=== PATIENT | female | born 1985 | race Caucasian/White ===

== ENCOUNTER → 2017-08-28 | Outpatient (REF) | payer OTHER ==
[2017-08-28 13:55] LABS: CONTROL LINE HCG INT CTR LINE PRESENT; HCG, SERUM QUALITATIVE NEGATIVE (NEGATIVE)
[2017-08-28 15:13] LABS: HCG, SERUM QUANTITATIVE < 1.0 MIU/ML
== END ==
LOC: M LAB REF 13:09
DX: Z32.02 Encounter for pregnancy test, result negative (principal)

== ENCOUNTER → 2018-09-16 | Outpatient (REF) | payer OTHER ==
[~2018-09-16] MED LIST: IBUP80TA PO; MAPA500T2 PO; PRENATAL VITAMIN PO; TUMS500C PO
[2018-09-16 19:22] LABS: HEMATOCRIT 39.1 % (36.0-47.0); HEMOGLOBIN 12.7 g/dl (12.0-15.5); MEAN CORPUSCULAR HEMOGLOBIN 31.1 pg (27.0-33.0); MEAN CORPUSCULAR HGB CONC 32.5 g/dl (32.0-36.5); MEAN CORPUSCULAR VOLUME 95.6 fl (80.0-96.0); PLATELET COUNT, AUTOMATED 311 10^3/uL (150-450); RED BLOOD COUNT 4.09 10^6/uL (4.00-5.40); WHITE BLOOD COUNT 7.5 10^3/uL (4.0-10.0)
[2018-09-17 11:59] LABS: HCG, SERUM QUANTITATIVE 37337 MIU/ML; HEPATITIS B SURFACE ANTIGEN NEGATIVE (NEGATIVE); HIV 1&2 SCREEN CENTAUR NEGATIVE (NEGATIVE); RUBELLA IgG QUALITATIVE IMMUNE (IMMUNE)
== END ==
LOC: M LAB REF 16:32
PROVIDERS: ATTEND Obstetrics & Gynecology
DX: O36.80X0 Pregnancy with inconclusive fetal viability, not applicable or unspecified (principal); Z32.01 Encounter for pregnancy test, result positive; Z3A.00 Weeks of gestation of pregnancy not specified

== ENCOUNTER → 2019-02-11 | Outpatient (CLI) | payer OTHER, BC ==
[~2019-02-11] MED LIST changes: +FAMO40TA3 PO; +IBUP-1022 PO
[2019-02-11 17:21] LABS: HEMATOCRIT 34.5 % (36.0-47.0); HEMOGLOBIN 11.4 g/dl (12.0-15.5); MEAN CORPUSCULAR HEMOGLOBIN 32.7 pg (27.0-33.0); MEAN CORPUSCULAR VOLUME 98.9 fl (80.0-96.0); PLATELET COUNT, AUTOMATED 284 10^3/uL (150-450); RED BLOOD COUNT 3.49 10^6/uL (4.00-5.40)
== END ==
LOC: M LAB 14:35
PROVIDERS: ATTEND Obstetrics & Gynecology
DX: Z34.82 Encounter for supervision of other normal pregnancy, second trimester (principal)

== ENCOUNTER → 2019-02-24 | Outpatient (CLI) | payer OTHER, BC ==
[~2019-02-24] MED LIST changes: -FAMO40TA3 PO; -IBUP-1022 PO
== END ==
LOC: M LAB 08:01
PROVIDERS: ATTEND Obstetrics & Gynecology
DX: R73.02 Impaired glucose tolerance (oral) (principal)

== ENCOUNTER → 2019-04-05 | Outpatient (REF) | payer OTHER, BC | LOC: M LAB REF 16:25 | PROVIDERS: ATTEND Obstetrics & Gynecology | DX: Z36.85 Encounter for antenatal screening for Streptococcus B (principal) ==

== ENCOUNTER 2019-05-03 09:18 | Inpatient (IN) | payer OTHER, BC ==
[2019-05-03] VITALS (25 sets, daily range): BP systolic 103–133; BP diastolic 55–98
[~2019-05-03] VITALS: Ht 162.6 cm; Wt 78.2 kg
[2019-05-03] MEDS ORDERED: LACTATED RINGER'S 1000 ML IV STA (09:32)
[2019-05-03] MEDS: LR 1,000 ML IV SCH ×2 (10:18→12:47)
[2019-05-03 10:26] LABS: HEMATOCRIT 35.8 % (36.0-47.0); HEMOGLOBIN 12.3 g/dl (12.0-15.5); MEAN CORPUSCULAR HEMOGLOBIN 32.6 pg (27.0-33.0); MEAN CORPUSCULAR HGB CONC 34.4 g/dl (32.0-36.5); PLATELET COUNT, AUTOMATED 281 10^3/uL (150-450); RED BLOOD COUNT 3.77 10^6/uL (4.00-5.40)
[2019-05-03] MEDS ORDERED: AMPICILLIN SOD 2 GM in D5W MINI-BAG PLUS 100 ML IV ONE (13:00)
[2019-05-03] MEDS ORDERED: AMPICILLIN SOD 2 GM in D5W 50 ML IV ONE (13:00)
[2019-05-03] MEDS ORDERED: OXYTOCIN 30 UNITS IN 0.9% NaCl 500ML IV BAG (J2590) As Ordered ONE (13:17)
[2019-05-03] MEDS ORDERED: OXYTOCIN DRIP 30 UNITS in IV 1 EA IV SCH ×2 (14:00→21:53)
[2019-05-03] MEDS ORDERED: AMPICILLIN SOD 1 GM in D5W 50 ML IV SCH (17:00)
[2019-05-03] MEDS ORDERED: FENTANYL 2MCG/ML ROPIVACAINE 0.2% IN 0.9% NACL 100ML IVBAG As Ordered ONE (19:06)
[2019-05-03] MEDS ORDERED: ePHEDrine SULFATE 25 MG/5 ML(5MG/ML) SYRINGE IV PRN (21:00)
[2019-05-03] MEDS ORDERED: diphenhydrAMINE INJ 50MG/ML VIAL (J1200) IV PRN (21:00)
[2019-05-03] MEDS ORDERED: EPIDURAL COMMENT XX SCH (21:00)
[2019-05-03] MEDS ORDERED: FENTANYL/ROPIVACAINE/NACL BAG 100 ML EPIDURAL SCH (21:00)
[2019-05-03] MEDS ORDERED: ONDANSETRON 4MG/2ML VIAL (J2405) IV PRN (21:00)
[2019-05-03] MEDS ORDERED: NALOXONE INJ 0.4 MG/1 ML VIAL (J2310) IV PRN (21:00)
[2019-05-03] MEDS ORDERED: REFRIGERATOR IV KEYS XX PRN (21:00)
[2019-05-03] MEDS ORDERED: EPIDURAL/PCA KEYS XX PRN (21:00)
[2019-05-03 21:46] LABS: CORD GAS ABE V -4.9; CORD GAS HCO3 V 19.5 MEQ/L; CORD GAS O2 SAT V 83.1 %; CORD GAS PCO2 V 35.4 mmHg; CORD GAS PH V 7.36 UNITS; CORD GAS PO2 V 38.6 mmHg; CORD GAS SBC V 20.1 MEQ/L; CORD GAS TCO2 V 20.6 MEQ/L
[2019-05-03 21:49] LABS: CORD GAS ABE A -7.6; CORD GAS HCO3 A 20.1 MEQ/L; CORD GAS O2 SAT A 49.5 %; CORD GAS PCO2 A 48.7 mmHg; CORD GAS PH A 7.234 UNITS; CORD GAS PO2 A 23.3 mmHg; CORD GAS SBC A 17.4 MEQ/L; CORD GAS TCO2 A 21.6 MEQ/L
[2019-05-03] MEDS ORDERED: RHOGAM 300 MCG (1500 IU) INJ (J2790) IM SCH (22:00)
[2019-05-03] MEDS ORDERED: METHYLERGONOVINE MALEATE 0.2 MG TAB PO PRN (22:00)
[2019-05-03] MEDS ORDERED: ACETAMINOPHEN TAB 650MG DOSE (2X325MG) PO PRN (22:00)
[2019-05-03] MEDS ORDERED: DOCUSATE SODIUM 100 MG CAP PO PRN (22:00)
[2019-05-03] MEDS ORDERED: MEASLES,MUMPS,RUBELLA VACCINE INJ (MMR-II) (90707) SC SCH (22:00)
[2019-05-03] MEDS ORDERED: IBUPROFEN 600 MG TAB PO PRN (22:00)
[2019-05-03] MEDS ORDERED: DIBUCAINE 1% OINTMENT 30GM TOP PRN (22:00)
--- NOTE | 2019-05-03 22:58 | HPE ---
DATE OF ADMISSION: 05/03/2019 Jocelyne is a 33-year-old female, 2, para 1-0-0-1, with an estimated date of confinement (EDC) of 05/07/2019, estimated gestational age 39-4/7 weeks gestation, who is being admitted for an induction. After counseling, decision was being admitted for elective induction. Upon admission no bleeding, no leakage of fluid. Good movement. Her records reviewed, which were essentially unremarkable. Blood type is A positive, rubella immune, hepatitis negative, HIV negative, gonorrhea and chlamydia negative, 1-hour sugar testing was within normal limits. Her group B Streptococcus (GBS) is positive. PAST MEDICAL HISTORY: Denies. PAST SURGICAL HISTORY: Denies. SOCIAL HISTORY: She is . Denies any alcohol, drug or cigarette smoking. REVIEW OF SYSTEMS: Unremarkable. MEDICATIONS vitamin. ALLERGIES: No known drug allergies. PHYSICAL EXAMINATION: Normal-appearing female in no acute distress. ABDOMEN: Soft, nontender, nondistended. EXTREMITIES: No clubbing, cyanosis or edema. VAGINAL EXAM: 1-2 cm dilated, 60-70% effaced, fetus at -3 station, vertex position. Tracing reviewed. Category one tracing. ASSESSMENT: 1. Intrauterine at 39-4/7 weeks gestation and being admitted for elective induction. 2. GBS positive. PLAN: Admit to labor and delivery. Routine labs sent. Ampicillin started for GBS prophylaxis. Pain management discussed. The patient opted for an epidural. Induction process also discussed. Patient given options and Pitocin and Cytotec. The decision was made to proceed with the Pitocin induction, which would be followed by artificial rupture of membrane.
--- NOTE | 2019-05-03 23:01 | DN ---
DATE: 05/03/2019 Snow is a 33-year-old female, 2, para 1-0-0-1, who was admitted at 39-4/7 weeks gestation for an induction. She underwent Pitocin followed by artificial rupture of membranes. She then progressed to fully dilated with a deep variable deceleration down to 80 beats per minute. She then pushed and delivered a live male infant in right occiput anterior position with a nuchal cord times one, scores 9 and 9. Placenta delivered spontaneously intact. Three-vessel cord. Perineum, vagina and cervix inspected. A first degree midline perineal laceration was noted, which was repaired using 2-0 Chromic. Estimated blood loss 250 mL. Both mother and baby in stable condition.
[2019-05-04 00:07] VITALS: BP 108/53
[2019-05-04] MEDS: IBUPROFEN 800 MG TAB PO PRN ×3 (00:45→21:46)
[2019-05-04] MEDS: ACETAMINOPHEN 500 MG TAB PO PRN ×2 (05:24→16:30)
[2019-05-04 06:18] VITALS: BP 112/55
[2019-05-04] MEDS: PRENATAL VITAMINS CHEWABLE TABLET PO SCH (08:39)
[2019-05-04 18:10] VITALS: BP 107/54
[2019-05-05 06:00] VITALS: BP 110/60
[2019-05-05] MEDS: PRENATAL VITAMINS CHEWABLE TABLET PO SCH (07:20)
== END 2019-05-05 10:30 | disposition home or self-care (01) | DRG 807 ==
LOC: M LDI 09:18 → M OBS 05-04 00:01
PROVIDERS: ADMIT Obstetrics & Gynecology; ATTEND Obstetrics & Gynecology
PROC: 10E0XZZ Delivery of Products of Conception, External Approach (ICD-10-PCS; principal; 2019-05-03)
PROC: 0HQ9XZZ Repair Perineum Skin, External Approach (ICD-10-PCS; 2019-05-03)
PROC: 3E033VJ Introduction of Other Hormone into Peripheral Vein, Percutaneous Approach (ICD-10-PCS; 2019-05-03)
PROC: 10907ZC Drainage of Amniotic Fluid, Therapeutic from Products of Conception, Via Natural or Artificial Opening (ICD-10-PCS; 2019-05-03)
DX: O99.824 Streptococcus B carrier state complicating childbirth (principal); Z37.0 Single live birth; Z3A.39 39 weeks gestation of pregnancy; O70.0 First degree perineal laceration during delivery; O69.81X0 Labor and delivery complicated by cord around neck, without compression, not applicable or unspecified

== ENCOUNTER → 2019-07-15 | Outpatient (REF) | payer OTHER, BC ==
[~2019-07-15] MED LIST changes: +FAMO40TA3 PO; +IBUP-1022 PO
[2019-07-15 19:16] LABS: BASO % 0.5 % (0.0-1.0); EOS # 0.3 10^3/uL (0.0-0.5); EOS % 3.2 % (0.0-3.0); HEMATOCRIT 40.4 % (36.0-47.0); HEMOGLOBIN 12.7 g/dl (12.0-15.5); LYMPH % 25.8 % (24.0-44.0); MEAN CORPUSCULAR HEMOGLOBIN 30.2 pg (27.0-33.0); MEAN CORPUSCULAR HGB CONC 31.4 g/dl (32.0-36.5); MONO # 0.6 10^3/uL (0.0-0.8); MONO % 7.3 % (0.0-5.0); NEUTROPHILS # 4.9 10^3/uL (1.5-8.5); NEUTROPHILS % 62.9 % (36.0-66.0); PLATELET COUNT, AUTOMATED 389 10^3/uL (150-450); RED BLOOD COUNT 4.21 10^6/uL (4.00-5.40); WHITE BLOOD COUNT 7.8 10^3/uL (4.0-10.0)
[2019-07-15 19:27] LABS: ALBUMIN 4.2 GM/DL (3.2-5.2); ALT/SGPT 531 U/L (12-78); AMYLASE 72 U/L (25-115); BILIRUBIN,TOTAL 0.6 MG/DL (0.2-1.0); BLOOD UREA NITROGEN 15 MG/DL (7-18); CALCIUM LEVEL 9.5 MG/DL (8.5-10.1); CARBON DIOXIDE LEVEL 27 MEQ/L (21-32); CHLORIDE LEVEL 104 MEQ/L (98-107); CREATININE FOR GFR 0.68 MG/DL (0.55-1.30); GLOMERULAR FILTRATION RATE > 60.0 (>60); GLUCOSE, FASTING 78 MG/DL (70-100); LIPASE 139 U/L (73-393); POTASSIUM SERUM 4.3 MEQ/L (3.5-5.1); SODIUM LEVEL 140 MEQ/L (136-145); TOTAL PROTEIN 7.6 GM/DL (6.4-8.2)
== END ==
LOC: M LAB REF 19:09
PROVIDERS: ATTEND Nurse Practitioner Family
DX: R10.816 Epigastric abdominal tenderness (principal)

== ENCOUNTER 2019-07-18 00:31 | Day surgery (SDC) | payer OTHER, BC ==
[~2019-07-18] VITALS: Ht 162.6 cm; Wt 76.2 kg
[~2019-07-18 00:31] MED LIST changes: -FAMO40TA3 PO; -IBUP-1022 PO
[2019-07-18] MEDS ORDERED: IBUP-1022 PO (00:36)
[2019-07-18] MEDS ORDERED: MORPHINE 4 MG/ML 1ML VIAL/SYRINGE (J2270) IV ONE (01:15)
[2019-07-18] MEDS ORDERED: METOCLOPRAMIDE INJ 10MG/2ML VIAL (J2765) IV ONE (01:15)
[2019-07-18] MEDS ORDERED: NS 1,000 ML IV ONE (01:15)
[2019-07-18 01:20] LABS: BASO # 0.1 10^3/uL (0.0-0.2); BASO % 0.7 % (0.0-1.0); EOS # 0.1 10^3/uL (0.0-0.5); EOS % 1.1 % (0.0-3.0); HEMATOCRIT 37.1 % (36.0-47.0); HEMOGLOBIN 12.2 g/dl (12.0-15.5); LYMPH # 1.2 10^3/uL (1.5-5.0); LYMPH % 17.2 % (24.0-44.0); MEAN CORPUSCULAR HEMOGLOBIN 30.6 pg (27.0-33.0); MEAN CORPUSCULAR HGB CONC 32.9 g/dl (32.0-36.5); MONO # 0.4 10^3/uL (0.0-0.8); MONO % 5.5 % (0.0-5.0); NEUTROPHILS # 5.4 10^3/uL (1.5-8.5); NEUTROPHILS % 75.4 % (36.0-66.0); PLATELET COUNT, AUTOMATED 355 10^3/uL (150-450); RED BLOOD COUNT 3.99 10^6/uL (4.00-5.40); WHITE BLOOD COUNT 7.1 10^3/uL (4.0-10.0)
[2019-07-18 01:35] LABS: HCG, SERUM QUALITATIVE NEGATIVE (NEGATIVE)
[2019-07-18 01:51] LABS: ALT/SGPT 1074 U/L (12-78); BILIRUBIN,DIRECT 0.4 MG/DL (0.0-0.2); BLOOD UREA NITROGEN 11 MG/DL (7-18); CALCIUM LEVEL 8.9 MG/DL (8.5-10.1); CARBON DIOXIDE LEVEL 27 MEQ/L (21-32); CHLORIDE LEVEL 104 MEQ/L (98-107); CREATININE FOR GFR 0.73 MG/DL (0.55-1.30); GLOMERULAR FILTRATION RATE > 60.0 (>60); GLUCOSE, FASTING 107 MG/DL (70-100); LIPASE 88 U/L (73-393); POTASSIUM SERUM 3.4 MEQ/L (3.5-5.1); SODIUM LEVEL 139 MEQ/L (136-145); TOTAL PROTEIN 7.5 GM/DL (6.4-8.2)
--- NOTE | 2019-07-18 02:40 | REPVR ---
PROCEDURE INFORMATION: Exam: US Abdomen Limited, Right Upper Quadrant Exam date and time: 07/18/19 (1:36am) Age: 33 years old Clinical indication: Acute abdominal pain. Biliary evaluation. TECHNIQUE: Imaging protocol: Real-time ultrasound of the abdomen with image documentation. Examination was focused on the right upper quadrant. COMPARISON: No relevant prior studies available FINDINGS: The liver is visually normal in size and texture. Distended gallbladder (measuring 11 x 4 cm in 2 dimensions), containing multiple echogenic stones. The gallbladder wall is thin. No pericholecystic fluid is appreciated. The sonographic Martinez's sign is reported to be (-). The CBD is mildly dilated (6.4 mm diameter). The pancreas appears unremarkable. The right kidney measures 11.2 cm in length, with no hydronephrosis appreciated. No ascites is seen. IMPRESSION: No evidence of acute cholecystitis. Thin gallbladder wall. Distended gallbladder, containing multiple stones. Mildly dilated CBD (6.4 mm diameter). Electronically signed by: Amber Brady On 07/18/2019 02:39:29 AM
[2019-07-18] MEDS ORDERED: KETOROLAC 30 MG/ML VIAL (J1885) IV PRN (04:00)
[2019-07-18] MEDS ORDERED: MAALOX 30 ML SUSP *UDC PO PRN (04:00)
[2019-07-18] MEDS ORDERED: ACETAMINOPHEN TAB 650MG DOSE (2X325MG) PO PRN (04:00)
[2019-07-18] MEDS ORDERED: ONDANSETRON 4MG/2ML VIAL (J2405) IV PRN (04:00)
[2019-07-18] MEDS ORDERED: NS 1,000 ML IV SCH (04:00)
[2019-07-18] MEDS ORDERED: MOM 30ML SUSPENSION UDC PO PRN (04:00)
[2019-07-18] MEDS ORDERED: FAMO40TA3 PO (04:05)
[2019-07-18 05:00] VITALS: BP 119/74
[2019-07-18] MEDS ORDERED: KCL 10MEQ IN D5/0.45NS 1000ML 1,000 ML IV SCH (05:00)
--- NOTE | 2019-07-18 05:14 | HPEPDOC ---
[facility] Medical History & Physical Date of Admission Jul 18, 2019 Date of Service: Jul 18, 2019 History and Physical CHIEF COMPLAINT: Abdominal pain, nausea and vomiting HISTORY OF PRESENT ILLNESS: Patient is a 33-year-old with no significant PMH who presents with intermittent epigastric abdominal pain which radiates around the left ribs to the back, which has been ongoing for 10 days and associated with nausea and vomiting. Patient had 8 weeks ago. She denies any fevers or chills, chest pain, shortness of breath, issues with voiding or stooling. She has been taking ibuprofen with some relief. She subsequently went to urgent care and had an ultrasound abdomen performed today, she was instructed previously to go to the ED if symptoms worsen. In the ED, vital signs stable, labs include WBC of 7.1, H&H of 12.2 and 37.1 respectively, platelet count 355, potassium 3.4, creatinine 0.73, fasting glucose 107, total bilirubin 1, direct bilirubin 0.4, AST 588, ALT 1074, alkaline phosphatase 198, albumin 4, lipase 88 beta hCG negative. Abdominal ultrasound reveals a distended gallbladder measuring 11 x 4 x 2 with multiple echogenic stones, thin gallbladder wall, dilated common bile duct at 6.4mm. She was also given morphine and Reglan, which alleviated her pain and nausea. ROS: 10 point review systems negative except per above. PMH: See above. PSH: None Family history: Reviewed and noncontributory Social history: No tobacco, or illicits, occasional alcohol, currently breast- feeding Medications: Reviewed Allergies: NKDA PHYSICAL EXAMINATION: VITAL SIGNS: Please see below. GENERAL: pleasant female in No distress HEENT: Normocephalic, atraumatic, dry mucous membranes NECK: Supple CARDIOVASCULAR EXAMINATION: S1, S2 RESPIRATORY EXAMINATION: CTAB ABDOMINAL EXAMINATION: Soft, epigastric tenderness, nondistended, positive bowel sounds, juliet gonzalez's and Mcburney's EXTREMITIES: no edema SKIN: No rash NEUROLOGICAL EXAMINATION: Awake PSYCHIATRIC EXAMINATION: Calm and cooperative, appropriate affect #Dilated common bile duct likely has choledocholithiasis, without cholecystitis. Spoke with ED, who will be contacting GI for ERCP. Nothing by mouth, IV fluids. Pain control with IV ketorolac and Zofran for nausea. Avoid opioids due to possible constriction of sphincter of oddi. Reglan can be found in the breast milk, will not continue at this time for nausea. GI consult. Pt is surgically cleared for ERCP, Revised cardiac risk index is Class 1 risk. #Hepatitis secondary to above, patients head be, hep C, HIV evaluation during were all negative, monitor CMP #.Hypokalemia, replace with IV fluids, evaluate magnesium level and replace accordingly #Elevated alkaline phosphatase, could be influenced by recent , H&H stable #Breast-feeding: will be cautious regarding medication administration might influence breast-feeding DVT prophylaxis: SCDs, frequent ambulation, hold heparin at this time due to possible ERCP in the a.m. Full code Vital Signs Vital Signs Date Time Temp Pulse Resp B/P (MAP) Pulse Ox O2 Delivery O2 Flow Rate FiO2 07/18/19 01:35 18 07/18/19 00:58 07/18/19 00:31 97.4 67 99 Room Air Laboratory Data Labs 24H Laboratory Tests 2 07/18/19 01:10: Immature Granulocyte % (Auto) 0.1, Neutrophils (%) (Auto) 75.4H, Lymphocytes (%) (Auto) 17.2L, Monocytes (%) (Auto) 5.5H, Eosinophils (%) (Auto) 1.1, Basophils (%) (Auto) 0.7, Neutrophils # (Auto) 5.4, Lymphocytes # (Auto) 1.2L, Monocytes # (Auto) 0.4, Eosinophils # (Auto) 0.1, Basophils # (Auto) 0.1, Nucleated Red Blood Cells % (auto) 0.0, Anion Gap 8, Glomerular Filtration Rate > 60.0, Calcium Level 8.9, Total Bilirubin 1.0#, Direct Bilirubin 0.4H, Aspartate Amino Transf (AST/SGOT) 588H, Alanine Aminotransferase (ALT/SGPT) 1074H, Alkaline Phosphatase 198H, Total Protein 7.5, Albumin 4.0, Albumin/Globulin Ratio 1.14, Lipase 88, Human Chorionic Gonadotropin, Qual NEGATIVE CBC/BMP Laboratory Tests 07/18/19 01:10 Home Medications Scheduled Famotidine (Famotidine) 40 Mg Tablet, 40 MG PO DAILY NEW MEDICATION HAS NOT STARTED Scheduled PRN Ibuprofen (Ibuprofen) 600 Mg Tablet, 600 MG PO TID PRN for PAIN Allergies Coded Allergies: apple (Verified Allergy, Intermediate, SWOLLEN LIPS/TONGUE, 05/04/19) A-FIB/CHADSVASC A-FIB History Current/History of A-Fib/PAF?: No ACACIA MENCHACA MD Jul 18, 2019 03:50
[2019-07-18] MEDS: HEPARIN SOD (PORCINE) 5000 UNITS/ML VIAL SC SCH ×2 (05:20→20:12)
[2019-07-18 06:11] LABS: MAGNESIUM LEVEL 2.1 MG/DL (1.8-2.4)
[2019-07-18] MEDS ORDERED: MORPHINE 2 MG/ML 1ML VIAL (J2270) IV PRN (07:45)
[2019-07-18] MEDS ORDERED: NALOXONE INJ 0.4 MG/1 ML VIAL (J2310) IV PRN (07:45)
[2019-07-18] MEDS: KCL 10MEQ/100ML SWI (KRUN) 10 MEQ in IV 1 EA IV SCH ×2 (08:32→09:58)
[2019-07-18] MEDS: PANTOPRAZOLE 40MG INJ (PROTONIX) (C9113) IV SCH (08:33)
[2019-07-18] MEDS ORDERED: DOCUSATE SODIUM 100 MG CAP PO SCH (09:00)
[2019-07-18 09:18] LABS: BLOOD UREA NITROGEN 8 MG/DL (7-18); CARBON DIOXIDE LEVEL 24 MEQ/L (21-32); CHLORIDE LEVEL 109 MEQ/L (98-107); CREATININE FOR GFR 0.51 MG/DL (0.55-1.30); GLOMERULAR FILTRATION RATE > 60.0 (>60); GLUCOSE, FASTING 85 MG/DL (70-100); MAGNESIUM LEVEL 2.2 MG/DL (1.8-2.4); POTASSIUM SERUM 3.6 MEQ/L (3.5-5.1); SODIUM LEVEL 142 MEQ/L (136-145)
[2019-07-18 14:00] VITALS: BP 106/71
--- NOTE | 2019-07-18 15:10 | REP ---
MRI ABDOMEN WITHOUT CONTRAST: MRCP. HISTORY: Abnormal liver functions. COMPARISON SONOGRAPHY: July 18, 2019 TECHNIQUE: Axial and coronal T2-weighted scans are obtained. MRCP acquisition is acquired, and maximal intensity projection images are generated and viewed rotationally. MRCP FINDINGS: There are multiple tiny rounded filling defects in the dependent portion of the gallbladder consistent with small gallstones. The intrahepatic bile ducts are not dilated. Common bile duct is not dilated. It measures 5 mm in greatest diameter. There is no MRCP evidence of choledocholithiasis. Pancreatic duct is normal in caliber. No incidental solid organ abnormality is appreciated. IMPRESSION: Cholelithiasis. Otherwise normal MRCP. No evidence of choledocholithiasis seen. Electronically Signed by Fortino Moore MD 07/18/2019 06:56 P
--- NOTE | 2019-07-18 15:39 | IPNPDOC ---
Date Seen The patient was seen on 07/18/19. Progress Note SUBJECTIVE: Snow was seen and examined this morning while lying upright in bed. She reports no adverse events overnight. She's not currently in any pain and denies any pain overnight. She remains NPO and underwent an abdominal MRI this morning ordered by gastroenterology to help better visualize biliary tree anatomy. She denies feeling nauseated or vomiting, and has yet to have a bowel movement since she was admitted. She denies fever, chills, night sweats, chest pain, chest pressure, pal pitations, dyspnea, dysuria, hematuria or pruritus at this time. OBJECTIVE PHYSICAL EXAMINATION: VITAL SIGNS: Please see below. GENERAL: Pleasant female who appears stated age. Well-nourished, well- hydrated. Does not appear to be in acute distress of any kind. Awake, alert and oriented 3. HEENT: Atraumatic, normocephalic. Anicteric and noninjected sclera. No pharyngeal erythema or exudate. Trachea is midline. CARDIOVASCULAR: Regular rate, regular rhythm. Normal S1, S2. No murmurs, rubs or clicks appreciated. RESPIRATORY: Clear to auscultation bilaterally, anteriorly and posteriorly. Symmetric chest expansion. No accessory muscle use on respiration. No wheezes, crackles or rhonchi appreciated. ABDOMINAL: Soft, nontender and nondistended. Normoactive bowel sounds present. No guarding or rigidity. EXTREMITIES: No lower extremity edema, clubbing or cyanosis. 2+ radial and posterior tibial pulses bilaterally. NEUROLOGICAL: Awake, alert and oriented 3. Responds appropriately to questions and commands. No focal deficits are appreciated. PSYCHOLOGICAL: Affect and mood appear appropriate LABORATORY DATA, IMAGING STUDIES, MICROBIOLOGY: Please see below. Abdominal MRI (07/18/19): Showed cholelithiasis with no evidence of choledocholithiasis per gastroenterology. DVT prophylaxis: Knee-high sequentials ordered. ASSESSMENT AND PLAN: This is a 33-year-old female who is 8 weeks s/p with no pertinent past medical history who presented to the emergency department overnight with the chief complaint of intermittent epigastric pain radiating to the back for 10 days and accompanying nausea and vomiting. Right upper quadrant limited abdominal ultrasound in the emergency department showed no evidence of acute cholecystitis with cholelithiasis and dilated common bile duct. GI was consulted by the ED physician and MRI of the abdomen was scheduled for this morning with possible ERCP to follow with choledocholithiasis was present. Abdominal MRI this morning showed cholelithiasis with no evidence of choledocholithiasis. ERCP was subsequently canceled as result. Hospitalist team contacted general surgery, who advised advancing patient's diet from NPO to clear liquids and rechecking morning transaminases. Discharge to follow with scheduled general surgery follow-up for elective cholecystectomy. #Cholelithiasis -Abdominal MRI this morning showed gallstones with no evidence of choledocholithiasis. ERCP was subsequently canceled. -Diet advanced to clear liquids -Spoke with general surgery regarding patient. If patient tolerates continued advancement in diet and remains asymptomatic, plan is for discharge and with outpatient follow up to schedule elective cholecystectomy -Continue with IV fluids and morphine for pain; Toradol discontinued -Hypokalemia seems to have resolved with IV fluids; serum magnesium within normal limits #Elevated transaminases -Likely secondary to cholelithiasis -metabolic panel for the morning to see if there is decrease #DVT prophylaxis: Knee-high sequentials DISPOSITION: Pending patient tolerates continued advancement in diet and transaminases tomorrow morning come down, patient will be likely discharged tomorrow with instructions to schedule follow-up with general surgery for elective cholecystectomy. Attending Physician Addendum: I have independently interviewed and examined the patient, and agree with the ph ysical findings and management plan as documented above by my Resident Physician. The Patient's concerns and questions have been addressed to the patient's satisfaction. She has been encouraged to call me should additional issues arise. VS, I&O, 24H, Fishbone Vital Signs/I&O Vital Signs Date Time Temp Pulse Resp B/P (MAP) Pulse Ox O2 Delivery O2 Flow Rate FiO2 07/18/19 14:00 98.5 72 17 106/71 (83) 96 Room Air I&O- Last 24 Hours up to 6 AM 07/18/19 06:00 Intake Total 1000 ml Output Total 300 ml Balance 700 ml Laboratory Data 24H LABS Laboratory Tests 2 07/18/19 01:10: Immature Granulocyte % (Auto) 0.1, Neutrophils (%) (Auto) 75.4H, Lymphocytes (%) (Auto) 17.2L, Monocytes (%) (Auto) 5.5H, Eosinophils (%) (Auto) 1.1, Basophils (%) (Auto) 0.7, Neutrophils # (Auto) 5.4, Lymphocytes # (Auto) 1.2L, Monocytes # (Auto) 0.4, Eosinophils # (Auto) 0.1, Basophils # (Auto) 0.1, Nucleated Red Blood Cells % (auto) 0.0, Anion Gap 8, Glomerular Filtration Rate > 60.0, Calcium Level 8.9, Magnesium Level 2.1, Total Bilirubin 1.0#, Direct Bilirubin 0.4H, Aspartate Amino Transf (AST/SGOT) 588H, Alanine Aminotransferase (ALT/SGPT) 1074H, Alkaline Phosphatase 198H, Total Protein 7.5, Albumin 4.0, Albumin/Globulin Ratio 1.14, Lipase 88, Human Chorionic Gonadotropin, Qual NEGATIVE 07/18/19 08:12: Anion Gap 9, Glomerular Filtration Rate > 60.0, Calcium Level 8.0L, Magnesium Level 2.2 CBC/BMP Laboratory Tests 07/18/19 01:10 07/18/19 08:12 KANE SULLIVAN D.O. Jul 18, 2019 15:39 UNRULY ESQUIVEL MD Jul 26, 2019 18:26
[2019-07-18] MEDS: NS 1,000 ML IV SCH (20:12)
[2019-07-18 22:00] VITALS: BP 107/69
[2019-07-19] MEDS: HEPARIN SOD (PORCINE) 5000 UNITS/ML VIAL SC SCH (05:30)
[2019-07-19 06:00] VITALS: BP 110/71
[2019-07-19] MEDS: NS 1,000 ML IV SCH ×2 (06:00→08:17)
[2019-07-19 06:50] LABS: HEMATOCRIT 34.5 % (36.0-47.0); HEMOGLOBIN 10.9 g/dl (12.0-15.5); MEAN CORPUSCULAR HEMOGLOBIN 30.7 pg (27.0-33.0); MEAN CORPUSCULAR HGB CONC 31.6 g/dl (32.0-36.5); MEAN CORPUSCULAR VOLUME 97.2 fl (80.0-96.0); PLATELET COUNT, AUTOMATED 269 10^3/uL (150-450); RED BLOOD COUNT 3.55 10^6/uL (4.00-5.40); WHITE BLOOD COUNT 4.7 10^3/uL (4.0-10.0)
[2019-07-19 07:20] LABS: ALBUMIN 3.1 GM/DL (3.2-5.2); ALT/SGPT 547 U/L (12-78); BILIRUBIN,TOTAL 0.6 MG/DL (0.2-1.0); BLOOD UREA NITROGEN 7 MG/DL (7-18); CALCIUM LEVEL 8.1 MG/DL (8.5-10.1); CARBON DIOXIDE LEVEL 24 MEQ/L (21-32); CHLORIDE LEVEL 112 MEQ/L (98-107); CREATININE FOR GFR 0.54 MG/DL (0.55-1.30); GLOMERULAR FILTRATION RATE > 60.0 (>60); GLUCOSE, FASTING 78 MG/DL (70-100); POTASSIUM SERUM 3.6 MEQ/L (3.5-5.1); SODIUM LEVEL 143 MEQ/L (136-145); TOTAL PROTEIN 6.3 GM/DL (6.4-8.2)
[2019-07-19] MEDS: PANTOPRAZOLE 40MG INJ (PROTONIX) (C9113) IV SCH (08:17)
--- NOTE | 2019-07-19 14:41 | DS.PDOC ---
Discharge Summary General Date of Admission 07/18/19 Date of Discharge 07/19/19 Discharge Summary CHIEF COMPLAINT: Abdominal pain, nausea and vomiting Final diagnosis Cholelithiasis Abdominal pain History of present illness and Hospital course: Patient is a 33-year-old with no significant PMH who presents with intermittent epigastric abdominal pain which radiates around the left ribs to the back, which has been ongoing for 10 days and associated with nausea and vomiting. Patient had 8 weeks ago. She denies any fevers or chills, chest pain, shortness of breath, issues with voiding or stooling. In the ED, vital signs stable, labs include WBC of 7.1, H&H of 12.2 and 37.1 respectively, pl atelet count 355, potassium 3.4, creatinine 0.73, fasting glucose 107, total bilirubin 1, direct bilirubin 0.4, AST 588, ALT 1074, alkaline phosphatase 198, albumin 4, lipase 88 beta hCG negative. Abdominal ultrasound reveals a distended gallbladder measuring 11 x 4 x 2 with multiple echogenic stones, thin gallbladder wall, dilated common bile duct at 6.4mm. She was also given morphine and Reglan, which alleviated her pain and nausea. Her Right upper quadrant limited abdominal ultrasound in the emergency department showed no evidence of acute cholecystitis with cholelithiasis and dilated common bile duct. GI was consulted by the ED physician and MRI of the abdomen was done which showed ki lithiasis with no evidence of choledocholithiasis. ERCP was subsequently canceled as result. Diet was advanced to clear liquids and then to full liquids and rechecking morning transaminases were trending down. Discharge to follow with scheduled general surgery follow-up for elective cholecystectomy. No signs of cholecystitis or cholangitis, so no antibiotics given. Patient advised to follow up with surgery for elective cholecystectomy. PHYSICAL EXAMINATION: VITAL SIGNS: Please see below. GENERAL: Pleasant female who appears stated age. Well-nourished, well- hydrated. Does not appear to be in acute distress of any kind. Awake, alert and oriented 3. HEENT: Atraumatic, normocephalic. Anicteric and noninjected sclera. No pharyngeal erythema or exudate. Trachea is midline. CARDIOVASCULAR: Regular rate, regular rhythm. Normal S1, S2. No murmurs, rubs or clicks appreciated. RESPIRATORY: Clear to auscultation bilaterally, anteriorly and posteriorly. Symmetric chest expansion. No accessory muscle use on respiration. No wheezes, crackles or rhonchi appreciated. ABDOMINAL: Soft, nontender and nondistended. Normoactive bowel sounds present. No guarding or rigidity. EXTREMITIES: No lower extremity edema, clubbing or cyanosis. 2+ radial and posterior tibial pulses bilaterally. NEUROLOGICAL: Awake, alert and oriented 3. Responds appropriately to questions and commands. No focal deficits are appreciated. PSYCHOLOGICAL: Affect and mood appear appropriate Medications. As per discharge reconciliation medication list Activity as tolerated Diet. 2 g sodium diet Follow-up appointments. PCP in 1 week, surgery in 1 week Condition on discharge. Patient is medically optimized for discharge Discharge disposition: Home Total time spent on this discharge including coordination of care, review of chart documentation and actual contact is around 35 minutes Vital Signs/I&Os Vital Signs Date Time Temp Pulse Resp B/P (MAP) Pulse Ox O2 Delivery O2 Flow Rate FiO2 07/19/19 06:00 98.4 75 18 110/71 (84) 97 Room Air I&O- Last 24 Hours up to 6 AM 07/19/19 06:00 Intake Total 3020 ml Output Total 1400 ml Balance 1620 ml Laboratory Data Labs 24H Laboratory Tests 2 07/19/19 06:24: Nucleated Red Blood Cells % (auto) 0.0, Anion Gap 7L, Glomerular Filtration Rate > 60.0, Calcium Level 8.1L, Total Bilirubin 0.6, Aspartate Amino Transf (AST /SGOT) 79H, Alanine Aminotransferase (ALT/SGPT) 547H, Alkaline Phosphatase 132H, Total Protein 6.3L, Albumin 3.1#L, Albumin/Globulin Ratio 0.97L CBC/BMP Laboratory Tests 07/19/19 06:24 Discharge Medications Scheduled Famotidine (Famotidine) 40 Mg Tablet, 40 MG PO DAILY, (Reported) NEW MEDICATION HAS NOT STARTED Scheduled PRN Ibuprofen (Ibuprofen) 600 Mg Tablet, 600 MG PO TID PRN for PAIN, (Reported) Allergies Coded Allergies: apple (Verified Allergy, Intermediate, SWOLLEN LIPS/TONGUE, 05/04/19) PING ALEXIS MD Jul 19, 2019 14:41
== END 2019-07-19 11:45 | disposition home or self-care (01) ==
LOC: M ED 00:31 → M SDC 00:32 → ENRESERV 04:02 → M MS5PR 04:32 → M SDC 07-19 11:45
PROVIDERS: ATTEND Family Medicine
DX: K80.20 Calculus of gallbladder without cholecystitis without obstruction (principal); R11.2 Nausea with vomiting, unspecified; E87.6 Hypokalemia; K75.9 Inflammatory liver disease, unspecified; Z79.899 Other long term (current) drug therapy; Z91.018 Allergy to other foods
CPT/HCPCS: 36415; 74181; 76705; 80048; 80053; 80076; 83690; 83735; 84703; 85025; 85027; 96361; 96365; 96366; 96372; 96375; 96376; 99284; C9113; J2270; J2765

== ENCOUNTER 2019-08-19 09:29 | Day surgery (SDC) | payer OTHER, BC ==
[~2019-08-19] VITALS: Ht 162.6 cm; Wt 66.1 kg
[~2019-08-19 09:29] MED LIST changes: +AMPICILLIN SOD/SULBACTAM SOD 3 GM in D5W MINI-BAG PLUS 100 ML IV ONE; +FAMO40TA3 PO; +IBUP-1022 PO; +LR 1,000 ML IV ONE; +PREN29TA4 PO
[2019-08-19] MEDS ORDERED: LIDOCAINE 1% SDV INJ 30 ML VIAL As Ordered ONE (11:29)
[2019-08-19] MEDS ORDERED: CONRAY-60 60% 50ML VIAL (Q9961) As Ordered ONE (11:30)
[2019-08-19] MEDS ORDERED: BUPIVACAINE HCL 0.25% 30 ML VIAL As Ordered ONE (11:30)
[2019-08-19] MEDS ORDERED: dexameTHASONE 4 MG/ML 1ML VIAL (J1100) As Ordered ONE (12:27)
[2019-08-19] MEDS ORDERED: ONDANSETRON 4MG/2ML VIAL (J2405) As Ordered ONE (12:27)
[2019-08-19] MEDS ORDERED: LIDOCAINE 2% INJ 100 MG/5 ML SYRINGE As Ordered ONE (12:27)
[2019-08-19] MEDS ORDERED: propofoL 200 MG/20 ML VIAL As Ordered ONE (12:27)
[2019-08-19] MEDS ORDERED: fentaNYL 250 MCG/5 ML INJECTION (J3010) As Ordered ONE (12:27)
[2019-08-19] MEDS ORDERED: ROCURONIUM BROMIDE 50 MG/5 ML VIAL As Ordered ONE (12:27)
[2019-08-19] MEDS ORDERED: MIDAZOLAM INJ 2 MG/2 ML VIAL (J2250) As Ordered ONE (12:28)
[2019-08-19] MEDS ORDERED: ACETAMINOPHEN 1000MG 100ML IV BTL (OFIRMEV) (J0131 PER 10MG) As Ordered ONE (13:29)
[2019-08-19] MEDS ORDERED: GLUCAGON FOR INJ 1 MG VIAL (J1610) As Ordered ONE (13:43)
[2019-08-19] MEDS ORDERED: NEOSTIGMINE 10 MG/10 ML VIAL (J2710) As Ordered ONE (14:07)
[2019-08-19] MEDS ORDERED: GLYCOPYRROLATE INJ 0.2 MG/ML 2 ML VIAL As Ordered ONE (14:07)
--- NOTE | 2019-08-19 14:35 | ROOPDOC ---
[facility] Report Of Operation Report of Operation DATE OF PROCEDURE: 08/19/19 PREPROCEDURE DIAGNOSES: Cholelithiasis, transient cbd stone passage. POSTPROCEDURE DIAGNOSES: same. PROCEDURE: Laparoscopic cholecystectomy with intraoperative cholangiogram. SURGEON: Mario Domingo MD BANK BOSS: Nicanor Schrader (MS III) ANESTHESIA: General Anesthesia. ESTIMATED BLOOD LOSS: Approximately 20 mL. COMPLICATIONS: none. REMARKS: healthy 33 year old female, recent admitted briefly to the hospital from abdominal pain and transient elevation of her LFTs, MRCP did not show stones. She improved and subesequently discharged. She is brought in today for interval cholecystectomy with plans for IOC PROCEDURE NOTE: distended but relatively thin walled gb with no active inflammation, multiple stones at the gb/cystic junction including the proximal cystic duct milked back to the gb. IOC no stones, biliary dilatation, good flow of contrast to the duodenum DESCRIPTION OF PROCEDURE: Patient was given a dose Unasyn 3 g IV preoperatively for prophylaxis. She was brought to the operating room, laid supine on the table, compression boots placed for DVT prophylaxis. General endotracheal anesthesia started. Her abdomen then prepped and draped in usual sterile fashion. Surgical timeout was performed prior to starting surgery. Entry into the abdomen done through an incision above the umbilicus. A Veress needle was inserted with a controlled fashion. CO2 insufflation started to pressure 15 mmHg. Using the same incision a 5 mm Visiport was placed under direct vision laparoscope. The area underneath the insertion site was inspected and no injury found. She was then placed in steep reverse Trendelenburg. Her right side was tilted up to further expose the gallbladder. Under direct vision a 11 mm epigastric port and Two 5 mm working ports placed along the right subcostal line. Operative findings: Liver is healthy and smooth. Gallbladder is moderately distended with relatively thin-walled. A few free-floating stones noted The fundus of the gallbladder was grasped and the gallbladder was elevated superiorly exposing the neck of the gallbladder. The infundibulum identified and retracted laterally. The peritoneum overlying the area was opened up and dissected free both anteriorly and posteriorly to help with retraction of the gallbladder. The hepatocystic triangle was approached and dissected using a [place] and instrument. The cystic duct was identified coming off from the neck of thr gallbladder; this was circumferentially dissected. The cystic artery was identified in its usual position medially behind a small lymph node of Calot. This was similarly circumferentially dissected off surrounding adipose tissue. We continued posterior dissection further taking down the fibroadipose tissue at the cystic plate clearing this off from the neck of the gallbladder proceeding proximally until a critical view of safety was achieved whereby only the previously identified duct and artery coursing through the neck the gallbladder. A single clip was placed at the gallbladder cystic duct junction and a partial cystotomy created distal to this. The cholangiogram catheter was inserted through the cystotomy and the balloon inflated. Saline was injected with no leakage. She was also given a dose of glucagon 1 mg IV by anesthesia on my instruction. A clip was placed to hold the catheter in place as we deflated the abdomen. She was repositioned in a slight Trendelenburg position. Cholangiogram was done there was good visualization of the biliary tree. The extrahepatic biliary ductal system does not appear distended. No evidence for stricture, narrowing or common bile duct stones. There was good contrast flow into the duodenum. At this point the cholangiogram was terminated and we proceeded with a cholecystectomy. The abdomen was then reinflated and she was repositioned back to a reverse Trend elenburg position. At this point the cystic artery was clipped 4 times and divided. After again checking her anatomy and verifying that the previously identified cystic duct, this was also clipped 4 times and divided. The rest of the gallbladder was then dissected free of the gallbladder bed using Bovie cautery. The gallbladder was then placed in an Endo Catch bag and retrieved outside through the epigastric port site. After re-insufflation and inspected the clips and noted this to be in place. No bile leakage noted. The abdomen was deflated all ports were removed. The epigastric fascial defect repaired with 0 Vicryl in a mattress fashion. Rest of the skin incisions closed with 4-0 Monocryl in subcuticular fashion. Steri- Strips and gauze dressings were placed, the wound. Patient was informed they awakened, extubated and brought to recovery room stable MARIO DOMINGO MD Aug 19, 2019 14:35
--- NOTE | 2019-08-19 14:40 | REP ---
Clinical: Cholelithiasis. Choledocholithiasis. Technique: Percutaneous cholangiogram with images obtained using portable C-arm technique. Findings: Multiple images from percutaneous cholangiogram demonstrates relatively normal caliber intrahepatic and extrahepatic biliary ductal system without filling defects to suggest choledocholithiasis. Irregular filling of the gallbladder is consistent with gallstones and sludge. Contrast outlines normal appearing adjacent duodenum. There is no extravasation. Total fluoroscopic time 1 minute 2 seconds. Impression: Cholelithiasis. No biliary ductal dilatation. No choledocholithiasis. Electronically Signed by Victor Manuel Coelho MD 08/19/2019 02:31 P
[2019-08-19] MEDS ORDERED: fentaNYL 100 MCG/2 ML INJECTION (J3010) IV PRN (14:45)
[2019-08-19] MEDS ORDERED: PERCOCET 5MG/325MG TAB PO PRN (14:45)
[2019-08-19] MEDS ORDERED: LR 1,000 ML IV SCH (14:45)
[2019-08-19] MEDS ORDERED: ONDANSETRON 4MG/2ML VIAL (J2405) IV PRN ×2 (14:45→15:46)
[2019-08-19] MEDS ORDERED: METOCLOPRAMIDE INJ 10MG/2ML VIAL (J2765) IV PRN (14:45)
[2019-08-19] MEDS ORDERED: NORCO, ANEXSIA 5/325MG TABLET (HYDROcodone/ACETAMINOPHEN) PO PRN (15:46)
[2019-08-19] MEDS ORDERED: KETOROLAC 30 MG/ML VIAL (J1885) IV PRN (15:46)
[2019-08-19 16:30] VITALS: BP 118/65
[2019-08-20] MEDS ORDERED: LIDOCAINE 2% INJ 100 MG/5 ML SDV (FOR ANES.) As Ordered ONE (21:55)
[2019-08-20] MEDS ORDERED: propofoL 200 MG/20 ML VIAL As Ordered ONE ×2 (21:55→22:45)
[2019-08-20] MEDS ORDERED: ONDANSETRON 4MG/2ML VIAL (J2405) As Ordered ONE (21:55)
[2019-08-20] MEDS ORDERED: dexameTHASONE 4 MG/ML 1ML VIAL (J1100) As Ordered ONE (21:56)
[2019-08-20] MEDS ORDERED: fentaNYL 100 MCG/2 ML INJECTION (J3010) As Ordered ONE (22:02)
[2019-08-20] MEDS ORDERED: MIDAZOLAM INJ 2 MG/2 ML VIAL (J2250) As Ordered ONE (22:02)
[2019-08-20] MEDS ORDERED: GLYCOPYRROLATE INJ 0.2 MG/ML 2 ML VIAL As Ordered ONE (22:48)
== END 2019-08-19 16:50 | disposition home or self-care (01) ==
LOC: M SDC 09:29
PROVIDERS: ATTEND Surgery
DX: K80.20 Calculus of gallbladder without cholecystitis without obstruction (principal); G43.909 Migraine, unspecified, not intractable, without status migrainosus; Z79.899 Other long term (current) drug therapy; Z91.018 Allergy to other foods
CPT/HCPCS: 47563; 74300; 81025; 88304; J0131; J1100; J1610; J2250; J2405; J2710; J3010; Q9961

== ENCOUNTER 2021-01-24 07:44 | Observation (INO) | payer OTHER, BC ==
[~2021-01-24] VITALS: Ht 162.6 cm; Wt 77.3 kg
[~2021-01-24 07:44] MED LIST changes: -AMPICILLIN SOD/SULBACTAM SOD 3 GM in D5W MINI-BAG PLUS 100 ML IV ONE; -LR 1,000 ML IV ONE
--- NOTE | 2021-01-24 08:32 | REP ---
INDICATION: trauma. COMPARISON: None. TECHNIQUE: Four views of the left ankle are provided. FINDINGS: Ankle mortise is intact. There is an acute nondisplaced distal fibular fracture oblique in orientation. There is cortical irregularity on the lateral film in the posterior tibial malleolus. The medial malleolus appears intact. There is soft tissue swelling predominantly laterally. IMPRESSION: Obliquely oriented fracture through the distal fibular metaphysis. Suspected nondisplaced fracture of the posterior tibial malleolus. <Electronically signed by Roberto Moore > 01/24/21 [id number]
--- NOTE | 2021-01-24 09:38 | REP ---
INDICATION: trauma. COMPARISON: X-ray 01/24/2021 TECHNIQUE: Axial CT images with coronal and sagittal bone window reconstructions. 3D surface renderings were also provided. FINDINGS: Study demonstrates a oblique distal fibular mildly comminuted fracture which extends inferior medially to the lateral corner of the mortise joint adjacent to the talar dome. Few mm of distraction of the distal fragment posteriorly a tiny butterfly fragment anterolaterally. In addition there is a posterior malleolar fracture with complex pattern of fracture lines. The medial malleolus is intact. The talar dome shows no fracture or osteochondral defect. Subtalar joints are intact. Os trigonum posterior to the posterior subtalar joint is seen. There are no heel spurs. Achilles tendon appears intact the fat pad without edema fluid calcaneus shows no fracture or focal bone lesion. The talonavicular joint shows an old ossific density likely avulsion superiorly. The calcaneocuboid joint seen only in part and is unremarkable. Mortise joint does show some slight widening of its medial component as on the x-rays. IMPRESSION: 1. Oblique distal fibular fracture with intra-articular extension to the lateral corner of mortise joint at the superolateral margin of the talus. A few mm of distraction. 2. There is a posterior malleolar fracture with complex fracture pattern and minimal distraction. 3. Medial malleolus, talus and calcaneus without acute fractures. No other significant bony finding <Electronically signed by Arnulfo Park > 01/24/21 [id number]
[2021-01-24 09:59] LABS: HEMATOCRIT 42.3 % (36.0-47.0); HEMOGLOBIN 14.3 g/dl (12.0-15.5); MEAN CORPUSCULAR HEMOGLOBIN 31.4 pg (27.0-33.0); MEAN CORPUSCULAR HGB CONC 33.8 g/dl (32.0-36.5); MEAN CORPUSCULAR VOLUME 92.8 fl (80.0-96.0); PLATELET COUNT, AUTOMATED 340 10^3/uL (150-450); RED BLOOD COUNT 4.56 10^6/uL (4.00-5.40); WHITE BLOOD COUNT 7.6 10^3/uL (4.0-10.0)
[2021-01-24] MEDS ORDERED: ONDANSETRON 4MG/2ML VIAL IV ONE (10:10)
[2021-01-24] MEDS: MORPHINE 2 MG/ML 1ML VIAL (J2270) IV PRN ×2 (10:18→14:14)
[2021-01-24] MEDS ORDERED: PERCOCET 5MG/325MG TAB PO PRN ×2 (10:30)
[2021-01-24] MEDS ORDERED: ACETAMINOPHEN TAB 650MG DOSE (2X325MG) PO PRN (10:30)
[2021-01-24 10:47] LABS: BLOOD UREA NITROGEN 11 MG/DL (7-18); CALCIUM LEVEL 9.5 MG/DL (8.5-10.1); CARBON DIOXIDE LEVEL 26 MEQ/L (21-32); CHLORIDE LEVEL 108 MEQ/L (98-107); CREATININE FOR GFR 0.62 MG/DL (0.55-1.30); GLOMERULAR FILTRATION RATE > 60.0 (>60); GLUCOSE, FASTING 90 MG/DL (70-100); POTASSIUM SERUM 4.3 MEQ/L (3.5-5.1); SODIUM LEVEL 141 MEQ/L (136-145)
--- NOTE | 2021-01-24 11:56 | HPEPDOC ---
[facility] Medical History & Physical Date of Admission Jan 24, 2021 Date of Service: Jan 24, 2021 Attending Physician: BABATUNDE VILA DO History and Physical CHIEF COMPLAINT: Left ankle fracture HISTORY OF PRESENT ILLNESS: Patient is a 35-year-old female who presented to the emergency department today after a fall. Patient states that she was holding her [id number] child and was walking down the steps and hurt her rooster made a noise. Patient says she looked at the rooster and was not looking where she was going. Patient thought she was on the last step but was not and ended up rolling her ankle. Patient states that she heard a crunch and felt a crunch. Patient reported to the emergency department where x-rays of her ankle were performed and showed that the patient had a bimalleolar fracture of the left ankle. Orthopedic surgery was called and recommended the patient be admitted for surgical procedure to be performed tomorrow. Patient states she is otherwise feeling well other than being slightly anxious. PAST MEDICAL HISTORY: Patient denies any past medical history PAST SURGICAL HISTORY: 1. Cholecystectomy in 2019. SOCIAL HISTORY: Patient lives at home with her 2 children and her . Patient denies smoking cigarettes or using illicit drugs and will very occasionally drink alcohol FAMILY HISTORY: Mother has a history of squamous cell carcinoma that she is currently finished radiation treatment for ALLERGIES: Please see below. REVIEW OF SYSTEMS: General: Patient denies fevers HEENT: Patient denies headaches Cardiovascular: Patient denies chest pain Respiratory: Patient denies shortness of breath, cough GI: Patient denies abdominal pain, nausea, vomiting, diarrhea : Patient denies increased frequency or pain with urination Extremities: Patient reports pain in her left lower extremity Neurological: Patient denies numbness or tingling in legs Skin: Patient denies any new rashes or lesions. Hematologic: Patient denies any easy bruising. Lymphatic: Patient denies any lumps lumps or bumps in neck, axilla, or groin HOME MEDICATIONS: Please see below. PHYSICAL EXAMINATION: VITAL SIGNS: Temperature 98.1, pulse 90, respiratory rate 16, blood pressure 109/59, pulse oximetry 98% on room air. General: Alert and oriented female patient who was laying in the bed when I walked in. Patient did appear anxious and tearful but was otherwise in no acute distress. HEENT: Normocephalic, atraumatic, moist mucous membranes. Neck: No lymphadenopathy or thyromegaly Cardiac: Regular rate and rhythm, no murmurs, normal S1, normal S2 Pulm: Clear to auscultation bilaterally. No wheezes, rhonchi, rales Abd: Nondistended, nontender to palpation, normal bowel sounds Ext: No edema bilateral lower extremities, mild swelling of the lateral aspect of the left ankle with some ecchymosis. Patient is neurovascularly intact distal to the injury. Neuro: Patient reports equal sensation to light touch in all 4 extremities. Patient is able to move all her extremities on command. Skin: Skin of the head, neck, upper and lower extremities was examined and showed evidence of rash or lesion. LABORATORY DATA: See below. IMAGING: Left ankle x-ray performed on 01/24/2021 was reported to show obliquely oriented fracture through the distal fibular metaphysis. Suspected nondisplaced fracture of the posterior tibial malleolus. CT of the left ankle performed without contrast on 01/24/2021 was reported to show oblique distal fibular fracture with intra-articular extension to the lateral corner of the mortise joint at the superolateral margin of the talus. A few millimeters of distraction. There is a posterior malleoli fracture with complex fracture pattern and minimal distraction. Medial malleolus, talus, and calcaneus without acute fractures. No other significant bony finding. MICROBIOLOGY: Please see below. ASSESSMENT: 35-year-old female who presented to the hospital after rolling her ankle and feeling a crunch she was diagnosed with a bimalleolar fracture.. . PLAN: 1. Bimalleolar fracture of the left ankle. Patient will be admitted for observation and Dr Cat will see the patient later on today and will take the patient to the operating room tomorrow with goal to discharge the patient after the surgery tomorrow. 2. Preoperative evaluation. Patient presents for preoperative evaluation for open reduction internal fixation of the left ankle on 01/25/2021. Review of their medical history, medications were performed. At this time patient does not require any further medical evaluation prior to surgery. Patient does not require any further laboratory evaluation prior to surgery. Surgical risk was reviewed with patient. Patient is at low risk for surgery according to the RCRI risk calculator. Surgical risk was explained to patient, they understand risks of surgery and wish to proceed with surgery. Patient does not take any medicat ion at home patient is medically optimized for surgery. 3. DVT prophylaxis: Will be held at this time due to surgery. Per orthopedic surgery after the surgery. 4. CODE STATUS: Full code Disposition: Patient be admitted to medical surgical floor for observation. Patient can eat today and will be held n.p.o. after midnight for procedure tomorrow. Patient will most likely be discharged tomorrow after procedure. Vital Signs Vital Signs Date Time Temp Pulse Resp B/P (MAP) Pulse Ox O2 Delivery O2 Flow Rate FiO2 01/24/21 10:28 16 01/24/21 08:03 01/24/21 07:45 98.1 90 98 Room Air Laboratory Data Labs 24H Laboratory Tests 2 01/24/21 09:50: Nucleated Red Blood Cells % (auto) 0.0, Anion Gap 7L, Glomerular Filtration Rate > 60.0, Calcium Level 9.5 01/24/21 10:57: CBC/BMP Laboratory Tests 01/24/21 09:50 Home Medications No Active Prescriptions or Reported Meds Allergies Coded Allergies: apple (Verified Allergy, Intermediate, SWOLLEN LIPS/TONGUE, 08/19/19) A-FIB/CHADSVASC A-FIB History Current/History of A-Fib/PAF?: No BABATUNDE VILA DO Jan 24, 2021 11:56
[2021-01-24 12:01] LABS: RSV AMPLIFICATION NEGATIVE (NEGATIVE)
[2021-01-24] MEDS ORDERED: ONDANSETRON 4MG/2ML VIAL IV PRN (13:55)
[2021-01-24] MEDS ORDERED: hydrOXYzine 10 MG TAB PO PRN (13:55)
[2021-01-24 15:45] VITALS: BP 113/63
[2021-01-24 22:00] VITALS: BP 113/65
[2021-01-25 06:16] VITALS: BP 113/69
[2021-01-25 08:44] LABS: HEMATOCRIT 38.3 % (36.0-47.0); HEMOGLOBIN 12.6 g/dl (12.0-15.5); MEAN CORPUSCULAR HEMOGLOBIN 31.3 pg (27.0-33.0); MEAN CORPUSCULAR HGB CONC 32.9 g/dl (32.0-36.5); MEAN CORPUSCULAR VOLUME 95.3 fl (80.0-96.0); PLATELET COUNT, AUTOMATED 307 10^3/uL (150-450); RED BLOOD COUNT 4.02 10^6/uL (4.00-5.40); WHITE BLOOD COUNT 6.1 10^3/uL (4.0-10.0)
[2021-01-25 09:15] LABS: BLOOD UREA NITROGEN 12 MG/DL (7-18); CALCIUM LEVEL 8.6 MG/DL (8.5-10.1); CARBON DIOXIDE LEVEL 26 MEQ/L (21-32); CHLORIDE LEVEL 107 MEQ/L (98-107); CREATININE FOR GFR 0.61 MG/DL (0.55-1.30); GLOMERULAR FILTRATION RATE > 60.0 (>60); GLUCOSE, FASTING 92 MG/DL (70-100); MAGNESIUM LEVEL 2.4 MG/DL (1.8-2.4); POTASSIUM SERUM 4.2 MEQ/L (3.5-5.1); SODIUM LEVEL 141 MEQ/L (136-145)
[2021-01-25] MEDS ORDERED: ROPIvacaine 0.5% 30ML INJECTION (J2795 PER 1MG) XX ONE (09:50)
[2021-01-25] MEDS ORDERED: LIDOCAINE 1% MDV 20ML VIAL XX ONE (09:50)
[2021-01-25] MEDS ORDERED: dexameTHASONE 10MG/1ML VIAL PRES.FREE (J1100 PER 1MG) XX ONE (09:50)
[2021-01-25] MEDS: fentaNYL 100 MCG/2 ML INJECTION (J3010) IV PRN ×2 (10:00→10:04)
[2021-01-25] MEDS: MIDAZOLAM INJ 2MG/2ML VIAL (J2250 PER 1MG) IV PRN ×2 (10:00→10:03)
[2021-01-25] MEDS ORDERED: LIDOCAINE 2% 100MG/5ML SDV (FOR ANES.) As Ordered ONE (10:12)
[2021-01-25] MEDS ORDERED: dexameTHASONE 4 MG/ML 1ML VIAL (J1100 PER 1MG) As Ordered ONE (10:12)
[2021-01-25] MEDS ORDERED: ONDANSETRON 4MG/2ML VIAL As Ordered ONE (10:12)
[2021-01-25] MEDS ORDERED: propofoL 200 MG/20 ML VIAL As Ordered ONE (10:12)
[2021-01-25] MEDS ORDERED: ROCURONIUM BROMIDE 50 MG/5 ML VIAL As Ordered ONE ×2 (10:12→11:52)
[2021-01-25] MEDS ORDERED: fentaNYL 250 MCG/5 ML INJECTION (J3010) As Ordered ONE (10:13)
[2021-01-25] MEDS ORDERED: MIDAZOLAM INJ 2MG/2ML VIAL (J2250 PER 1MG) As Ordered ONE (10:13)
[2021-01-25] MEDS ORDERED: ceFAZolin 2 GM/D5W 50 ML IV BAG (J0690 PER 500MG) As Ordered ONE (10:14)
[2021-01-25] MEDS ORDERED: SEVOFLURANE INHAL SOLN 250 ML BTL As Ordered ONE (10:23)
[2021-01-25] MEDS ORDERED: HYDROmorphone HCL 2 MG/ML 1ML VIAL (J1170) As Ordered ONE (11:38)
[2021-01-25] MEDS ORDERED: ACETAMINOPHEN 1000MG 100ML IV BTL (OFIRMEV) (J0131 PER 10MG) As Ordered ONE (11:38)
[2021-01-25] MEDS ORDERED: SUGAMMADEX SODIUM 500 MG/5 ML VIAL (BRIDION) As Ordered ONE (11:38)
[2021-01-25] MEDS ORDERED: LR 1,000 ML IV SCH (13:50)
[2021-01-25] MEDS ORDERED: ONDANSETRON 4MG/2ML VIAL IV PRN (13:50)
[2021-01-25] MEDS ORDERED: oxyCODONE 5MG TAB PO PRN (13:50)
[2021-01-25] MEDS ORDERED: fentaNYL 100 MCG/2 ML INJECTION (J3010) IV PRN (13:50)
[2021-01-25 14:30] VITALS: BP 107/65
[2021-01-25 15:00] VITALS: BP 101/55
[2021-01-25 16:00] VITALS: BP 101/55
[2021-01-25] MEDS ORDERED: PERCOCET PO (16:07)
[2021-01-25] MEDS ORDERED: ASPI81TA26 PO (16:07)
[2021-01-25 17:00] VITALS: BP 101/55
[2021-01-25 18:00] VITALS: BP 106/57
--- NOTE | 2021-01-25 18:01 | DS.PDOC ---
Discharge Summary General Date of Admission Jan 24, 2021 at 10:29 Date of Discharge 01/25/2021 Attending Physician: BABATUNDE VILA DO Specialist/Consultants Involve: ARNIE WEST MD Discharge Summary PROCEDURES PERFORMED DURING STAY: Open reduction internal fixation of left ankle. ADMITTING DIAGNOSES: 1. Bimalleolar fracture of the left ankle. DISCHARGE DIAGNOSES: 1. Bimalleolar fracture left ankle. COMPLICATIONS/CHIEF COMPLAINT: Bimalleolar Fracture. HISTORY OF PRESENT ILLNESS: Patient is a 35-year-old female who was walking down the steps on 01/24/2021 when she thought she was at the final step but was not and fell rolling her ankle. Patient felt a crunch and reported to the emergency department. Patient was found to have a bimalleolar fracture of the left ankle. Patient was admitted into the hospital for observation prior to the surgery being performed. Patient did not have any other pain or symptoms at that time. Patient did not feel dizzy prior to the fall. HOSPITAL COURSE: Patient did well overnight and had her open reduction internal fixation of the left ankle performed on 01/25/2021. Patient was returned to the floor in good spirits with a cast on. Patient was instructed to take an aspirin 81 mg once a day for 30 days for DVT prophylaxis as instructed by orthopedic surgery. Pain control was sent for the patient and the patient was discharged home on 01/25/2021. DISCHARGE MEDICATIONS: Please see below. ALLERGIES: Please see below. PHYSICAL EXAMINATION ON DISCHARGE: VITAL SIGNS: Please see below. General: Alert and oriented female patient who was lying in bed comfortably when I walked in. Patient not appear to be in any acute distress. HEENT: Normocephalic, atraumatic, moist mucous membranes. Neck: No lymphadenopathy or thyromegaly Cardiac: Regular rate and rhythm, no murmurs, normal S1, normal S2 Pulm: Clear to auscultation bilaterally. No wheezes, rhonchi, rales Abd: Nondistended, nontender to palpation, normal bowel sounds Ext: No edema bilateral lower extremities patient had a splint on the left ankle with ice surrounding the ankle. Patient was neurovascularly intact distally to the injury. LABORATORY DATA: Please see below. IMAGING: Left ankle x-ray performed on 01/24/2021 was reported to show obliquely oriented fracture through the distal fibular metaphysis. Suspected nondisplaced fracture of the posterior tibial malleolus. CT of the left ankle performed without contrast on 01/24/2021 was reported to show oblique distal fibular fracture with intra-articular extension to the lateral corner of the mortise joint at the superolateral margin of the talus. A few millimeters of distraction. There is a posterior malleoli fracture with complex fracture pattern and minimal distraction. Medial malleolus, talus, and calcaneus without acute fractures. No other significant bony finding. PROGNOSIS: Good ACTIVITY: As tolerated. DIET: Regular DISCHARGE PLAN: Discharge home DISPOSITION: . DISCHARGE INSTRUCTIONS: 1. Follow-up with your primary care provider within 5 to 7 days of discharge. 2. Follow-up with orthopedic surgery as a scheduled. 3. Take baby aspirin 81 mg daily for the next 30 days for DVT prophylaxis as instructed by orthopedic surgery ITEMS TO FOLLOWUP ON ON OUTPATIENT: 1. Follow-up on ankle fracture. DISCHARGE CONDITION: Stable. TIME SPENT ON DISCHARGE: 20 minutes. Vital Signs/I&Os Vital Signs Date Time Temp Pulse Resp B/P (MAP) Pulse Ox O2 Delivery O2 Flow Rate FiO2 01/25/21 17:00 97.5 96 16 101/55 (70) 96 Room Air 01/25/21 13:40 2.0 I&O- Last 24 Hours up to 6 AM 01/25/21 06:00 Intake Total 650 ml Output Total 0 ml Balance 650 ml Laboratory Data Labs 24H Laboratory Tests 2 01/25/21 08:23: Nucleated Red Blood Cells % (auto) 0.0, Anion Gap 8, Glomerular Filtration Rate > 60.0, Calcium Level 8.6, Magnesium Level 2.4 CBC/BMP Laboratory Tests 01/25/21 08:23 Discharge Medications Scheduled Aspirin (Aspirin EC) 81 Mg Tablet.dr, 1 TAB PO DAILY for pain Scheduled PRN Oxycodone/Acetaminophen (Oxycodone-Acetaminophen 5-325) 1 Each Tablet, 1 TAB PO Q4H PRN for PAIN LEVEL 5-10 Allergies Coded Allergies: apple (Verified Allergy, Intermediate, SWOLLEN LIPS/TONGUE, 08/19/19) BABATUNDE VILA DO Jan 25, 2021 18:01
--- NOTE | 2021-01-25 21:25 | ER ---
ER CONSULTATION DATE: 01/24/2021 CONSULTING SERVICE: Orthopedic surgery consult with physician, Dr. Derrick Cat. HISTORY OF PRESENT ILLNESS: This is a 35-year-old female who sustained an isolated left distal fibular fracture, which was closed after twisting her ankle coming down the stairwell. Patient had immediate inability to bear weight and presented to [facility] Emergency Department for further evaluation and treatment. Orthopedic surgery was consulted and she was indicated for a left ankle open reduction internal fixation for an unstable ankle fracture. She was admitted via hospitalist and will undergo surgery on the January. PAST MEDICAL HISTORY: Denies. PAST SURGICAL HISTORY: Cholecystectomy in 2019. FAMILY HISTORY: Mother has history of squamous cell carcinoma; status post radiation treatment. SOCIAL HISTORY: Nondrinking, nonsmoker, non-IV drug user. She lives at home with her two children and her . ALLERGIES: Please see internal medicine note. REVIEW OF SYSTEMS: A 14-point review of systems was negative unless otherwise described in the HPI above. PHYSICAL EXAMINATION: Alert to person, time and place. Left lower extremity tenderness to palpation about the distal fibula. She had obvious deformity and swelling above the lateral aspect of the distal fibula, however, the swelling was minimal. She had 5/5 motor strength in the EHL, FHL, tibialis anterior, gastrocnemius and perineal musculature. She has sensation intact to light touch to the deep and superficial perineal, sural saphenous and tibial nerve distributions. 2+ dorsalis pedis and posterior tibial arterial pulse. She had brisk capillary refill to the digits under 2 seconds. RADIOGRAPHS: Radiographs demonstrate a distal fibular oblique fracture with lateral translation of the talus within the mortise. She had very minimal posterior malleolar fracture, which was well reduced and comprised less than 5% of the articular surface. IMPRESSION: A 35-year-old female with an unstable left ankle fracture requiring open reduction internal fixation for stability. PLAN: The patient will be optimized for surgery on the Januaryfor left ankle open reduction internal fixation. The patient will likely require open reduction internal fixation of her left distal fibula, possible syndesmotic fixation if indicated with a disrupted syndesmosis. Patient will be optimized, made n.p.o. midnight on the January and undergo the aforementioned procedure. Patient was educated of the aforementioned findings. EBONY
--- NOTE | 2021-01-26 10:04 | RO ---
OPERATIVE NOTE DATE OF OPERATION: 01/25/2021 TIME: 12:01 p.m. PREOPERATIVE DIAGNOSIS: Left isolated fibula fracture, closed. POSTOPERATIVE DIAGNOSIS: Left isolated fibula fracture, closed. NAME OF OPERATION: Left ankle open reduction and internal fixation. SURGEON: Derrick Cat MD EXPERIMENTAL ROCKET SLED MECHANIC: None. SUPERVISING ATTENDING: Derrick Cat MD FINDINGS: The patient had a spiral fracture of the distal fibula of the left ankle. INDICATIONS: This is a 35-year-old female with a closed left ankle fracture with a spiral distal fibular fracture of the left distal fibula. It was a closed injury. The injury was sustained on the January,. She presented to [facility] emergency department after the fall. She twisted her ankle after falling off the last step on her stairwell. The patient was admitted by the hospitalist service and indicated for an open reduction and internal fixation of the left ankle for unstable ankle fracture. The patient denies a past medical history and had a cholecystectomy in 2019. She otherwise is a nonsmoker, not illicit drug user and a social drinker and lives at home with her two children. ANESTHESIA: GETA. TOURNIQUET TIME: 108 minutes. ESTIMATED BLOOD LOSS: 30 mL. IV FLUIDS: Please see anesthesia report. IV ANTIBIOTICS: 2 gm Ancef. IMPLANTS: Synthes. SPECIMENS: None. CULTURES: None. DESCRIPTION OF PROCEDURE: The patient was met in the preoperative holding area where the patient's operative extremity was signed, the patient's consent was confirmed to be correct, and the patient's identity was confirmed to be correct. The patient was then transported to the operating theater where she was placed supine on a regular surgical flat-top radiolucent bed. A safety strap secured the patient to the bed. All bony prominences were well padded and the contralateral lower extremity had SCD placed. A timeout was called which confirmed the correct patient, correct operative extremity and correct consent. All staff was in agreement. We began the procedure by obtaining fluoroscopic imaging of the patient's left ankle as well as the left tibia to ensure there were no proximal fractures. I then marked out a surgical incision about the lateral aspect of the patient's distal fibula measuring approximately 4 inches in length. I incised the skin sharply, ensuring to not interrupt the superficial peroneal nerve. I then elevated the periosteum off the lateral aspect of the distal fibula to identify the fracture. The fracture was cleaned using a hemostat and scalpel. I then used a [id number] bone-reducing clamp to obtain provisional fixation of the fracture. I was able to get a cortical read and had anatomic reduction. I obtained fluoroscopic imaging to ensure that I was satisfied with my reduction which I was. I then placed two 2.7 mm lag screws by technique into position across the orthogonal fracture site to ensure absolute stability. I obtained fluoroscopy to ensure I was satisfied with the fracture reduction as well as the screw placement. I was satisfied. I then placed a 6-hole distal fibular locking plate into position. This was secured distally with a cortical screw and secured proximally with three cortical screws. I then placed three additional locking screws in the plate using the locking plate drill guide. I then replaced the most distal cortical screw with a locking screw to ensure that there was no penetration within the ankle joint. At this point in time, I stressed the ankle using fluoroscopy as well as a Cotton test to ensure that was no syndesmotic disruption, the ankle was stable and there was no lateral translation of the talus within the ankle mortise. At this point in time after obtaining my final fluoroscopic imaging demonstrating I was satisfied with implant placement as well as fracture reduction, we copiously irrigated the surgical site. I closed the periosteum over the plate using an 0 Vicryl and closed the dermal layers using 2-0 Vicryl. I closed the skin using a running 3-0 nylon suture. I placed Xeroform over the patient's surgical incision and placed the patient's left ankle in a well-padded L and U splint. The patient was extubated without complication and transported to the postanesthesia care unit. The patient will be nonweightbearing for six weeks postoperatively. She will follow up in the [facility] orthopedic clinic in two weeks for a postoperative wound check and a transition into a Cam boot. At that point in time, she will be range of motion as tolerated. She will follow the ankle fracture rehabilitative protocol. She will be given pain medication as prescribed by the internal medicine team. I recommend 81 mg of aspirin daily starting on the January, for 30 days for DVT chemoprophylaxis. This would be once daily 81 mg of aspirin. The patient was educated of the aforementioned.
--- NOTE | 2021-01-26 13:19 | REP ---
INDICATION: LEFT ANKLE FRACTURE. COMPARISON: None. TECHNIQUE: Seventeen views, 98.6 seconds of fluoroscopy time is reported. FINDINGS: A sequence of 17 last image hold fluoroscopically obtained spot radiographs of the left ankle document open reduction internal fixation distal fibular screw plate placement. IMPRESSION: Procedural imaging. <Electronically signed by Roberto Moore > 01/26/21 [id number]
== END 2021-01-25 18:40 | disposition home or self-care (01) ==
LOC: M ED 07:44 → M ED INP 10:29 → ENRESERV 15:11 → M MS5PR 15:36
PROVIDERS: ADMIT Family Medicine; ATTEND Family Medicine
DX: S82.842A Displaced bimalleolar fracture of left lower leg, initial encounter for closed fracture (principal); W10.8XXA Fall (on) (from) other stairs and steps, initial encounter; Y92.008 Other place in unspecified non-institutional (private) residence as the place of occurrence of the external cause; Y93.01 Activity, walking, marching and hiking; Y99.8 Other external cause status; G43.909 Migraine, unspecified, not intractable, without status migrainosus; Z91.018 Allergy to other foods
CPT/HCPCS: 27814; 36415; 73610; 73700; 76000; 80048; 83735; 85027; 87631; 96374; 96375; 96376; 99284; C1713; J0131; J0690; J1100; J1170; J2250; J2270; J2405; J3010

== ENCOUNTER → 2021-02-06 | Outpatient (CLI) | payer OTHER, BC ==
[~2021-02-06] MED LIST changes: +ASPI81TA26 PO; +PERCOCET PO
--- NOTE | 2021-02-06 11:29 | REP ---
INDICATION: SURGICAL AFTERCARE. COMPARISON: Left ankle, 01/24/2021. TECHNIQUE: Four views of the left ankle were obtained. FINDINGS: Status post screw and plate fixation of a fracture of the distal fibula. There are no complications evident. The mortise joint, subtalar joint, tibiotalar and talonavicular joints are normal. There is mild soft tissue swelling over the surgical site. IMPRESSION: Status post ORIF left fibular fracture. Other findings as noted. <Electronically signed by Clarence Forde > 02/06/21 [id number]
== END ==
LOC: M SOG 09:19
PROVIDERS: ATTEND Orthopaedic Surgery
DX: Z48.89 Encounter for other specified surgical aftercare (principal); Z98.890 Other specified postprocedural states

== ENCOUNTER → 2021-03-08 | Outpatient (CLI) | payer OTHER, BC ==
--- NOTE | 2021-03-08 10:14 | REP ---
INDICATION: POST OP LT ANKLE SURG. COMPARISON: None. TECHNIQUE: AP, lateral, oblique views of the left ankle FINDINGS: Patient is status post open reduction and fixation with orthopedic hardware along the distal fibula. IMPRESSION: Status post satisfactory open reduction and fixation. <Electronically signed by Victor Manuel Coelho > 03/08/21 [id number]
== END ==
LOC: M SOG 09:16
PROVIDERS: ATTEND Orthopaedic Surgery
DX: Z48.815 Encounter for surgical aftercare following surgery on the digestive system (principal); Z48.89 Encounter for other specified surgical aftercare

== ENCOUNTER → 2022-09-03 | Outpatient (REF) | payer OTHER, BC | LOC: M LAB REF 17:29 | PROVIDERS: ATTEND Nurse Practitioner Family | DX: Z12.4 Encounter for screening for malignant neoplasm of cervix (principal) | CPT/HCPCS: 87624; G0123 ==

== ENCOUNTER → 2022-12-12 | Outpatient (REF) | payer OTHER, BC ==
[2022-12-12 15:33] LABS: ALKALINE PHOSPHATASE 45 U/L (46-116); ALT/SGPT 16 U/L (7.0-40); AST/SGOT 11 U/L (<34); BILIRUBIN,TOTAL 0.4 MG/DL (0.3-1.2); BLOOD UREA NITROGEN 15 MG/DL (9-23); CALCIUM LEVEL 8.9 MG/DL (8.5-10.1); CARBON DIOXIDE LEVEL 29 MMOL/L (20-31); CHLORIDE LEVEL 106 MMOL/L (98-107); CREATININE FOR GFR 0.64 MG/DL (0.55-1.30); GLOMERULAR FILTRATION RATE > 60.0 (>60); GLUCOSE, FASTING 85 MG/DL (60-100); POTASSIUM SERUM 4.9 MMOL/L (3.5-5.1); SODIUM LEVEL 141 MMOL/L (136-145)
[2022-12-12 15:35] LABS: BASO # 0.1 10^3/uL (0.0-0.2); EOS # 0.3 10^3/uL (0.0-0.5); EOS % 5.1 % (0.0-3.0); HEMATOCRIT 41.1 % (36.0-47.0); HEMOGLOBIN 13.1 g/dl (12.0-15.5); LYMPH # 1.5 10^3/uL (1.5-5.0); LYMPH % 30.8 % (24.0-44.0); MEAN CORPUSCULAR HEMOGLOBIN 30.6 pg (27.0-33.0); MEAN CORPUSCULAR HGB CONC 31.9 g/dl (32.0-36.5); MONO # 0.3 10^3/uL (0.0-0.8); MONO % 6.5 % (2.0-8.0); NEUTROPHILS # 2.8 10^3/uL (1.5-8.5); NEUTROPHILS % 56.4 % (36.0-66.0); PLATELET COUNT, AUTOMATED 368 10^3/uL (150-450); RED BLOOD COUNT 4.28 10^6/uL (4.00-5.40); WHITE BLOOD COUNT 4.9 10^3/uL (4.0-10.0)
== END ==
LOC: M LABDRWAD 12:37
PROVIDERS: ATTEND Nurse Practitioner Family
DX: Z00.00 Encounter for general adult medical examination without abnormal findings (principal)

== ENCOUNTER → 2024-09-28 | Outpatient (REF) | payer OTHER, BC ==
[2024-09-28 13:52] LABS: BASO # 0.1 10^3/uL (0.0-0.2); BASO % 1.1 % (0.0-1.0); EOS # 0.3 10^3/uL (0.0-0.5); EOS % 4.4 % (0.0-3.0); HEMATOCRIT 40.8 % (36.0-47.0); HEMOGLOBIN 13.2 g/dl (12.0-15.5); LYMPH # 1.9 10^3/uL (1.5-5.0); LYMPH % 34.2 % (24.0-44.0); MEAN CORPUSCULAR HEMOGLOBIN 31.1 pg (27.0-33.0); MEAN CORPUSCULAR HGB CONC 32.4 g/dl (32.0-36.5); MONO # 0.5 10^3/uL (0.0-0.8); MONO % 8.8 % (2.0-8.0); NEUTROPHILS # 2.9 10^3/uL (1.5-8.5); NEUTROPHILS % 51.3 % (36.0-66.0); PLATELET COUNT, AUTOMATED 420 10^3/uL (150-450); RED BLOOD COUNT 4.25 10^6/uL (4.00-5.40); WHITE BLOOD COUNT 5.7 10^3/uL (4.0-10.0)
[2024-09-28 14:22] LABS: ALBUMIN 3.7 G/DL (3.2-5.2); ALKALINE PHOSPHATASE 46 U/L (35-104); ALT/SGPT 19 U/L (7.0-40); AST/SGOT 14 U/L (<34); BILIRUBIN,TOTAL 0.3 MG/DL (0.3-1.2); BLOOD UREA NITROGEN 13 MG/DL (9-23); CALCIUM LEVEL 9.3 MG/DL (8.5-10.1); CARBON DIOXIDE LEVEL 28 MMOL/L (20-31); CHLORIDE LEVEL 109 MMOL/L (98-107); CHOLESTEROL LEVEL 199 MG/DL (<200); CHOLESTEROL RISK RATIO 4.21 (<5); CREATININE FOR GFR 0.67 MG/DL (0.55-1.30); GLOMERULAR FILTRATION RATE > 60.0 (>58); GLUCOSE, FASTING 93 MG/DL (60-100); HDL CHOLESTEROL 47.2 MG/DL (>40); NON-HDL-C 151.8 MG/DL; POTASSIUM SERUM 4.8 MMOL/L (3.5-5.1); SODIUM LEVEL 143 MMOL/L (136-145); TOTAL PROTEIN 7.2 G/DL (5.7-8.2); TRIGLYCERIDES LEVEL 109 MG/DL (<150)
[2024-09-28 14:26] LABS: FREE T4 1.19 NG/DL (0.89-1.76); THYROID STIMULATING HORMONE 2.215 uIU/ML (0.55-4.78)
== END ==
LOC: M LABDRWAD 13:05
PROVIDERS: ATTEND Registered Nurse
DX: Z00.00 Encounter for general adult medical examination without abnormal findings (principal)